=== PATIENT | female | born 1940 | race Native Hawaiian/Other Pacific Islander ===

== ENCOUNTER 2023-08-25 15:22 | Emergency (ER) | payer MEDICARE, OTHER ==
[~2023-08-25] VITALS: Ht 154.9 cm; Wt 72.7 kg
[2023-08-25] MEDS ORDERED: MIRT-89 PO (15:32)
[2023-08-25] MEDS ORDERED: METF-1211 PO (15:32)
[2023-08-25] MEDS ORDERED: ATOR10TA PO (15:32)
[2023-08-25] MEDS ORDERED: AMLO2.5T29 PO (15:32)
[2023-08-25 15:47] VITALS: TEMP 98.8
[2023-08-25 17:28] LABS: APPEARANCE,URINE CLEAR (CLEAR); BILIRUBIN,URINE NEGATIVE (NEGATIVE); COLOR,URINE LIGHT YELLOW (YELLOW); GLUCOSE, URINE (UA) NEGATIVE (NEGATIVE); KETONES,URINE NEGATIVE (NEGATIVE); LEUKOCYTE ESTERASE ,URINE MODERATE (NEGATIVE); NITRATE,URINE NEGATIVE (NEGATIVE); OCCULT BLOOD,URINE TRACE (NEGATIVE); PROTEIN,URINE 100-200,SEE CONFIRM mg/dL (NEGATIVE); SPECIFIC GRAVITIY, URINE 1.013 (1.003-1.030); UROBILINOGEN,URINE <=1.0 mg/dL (<=1.0)
[2023-08-25 17:38] LABS: BACTERIA,URINE Few /HPF (None Seen); SQUAMOUS EPITHELIAL CELL,UR Few /LPF (None Seen)
[2023-08-25 17:41] LABS: SULFOSALICYLIC ACID,URINE 2+ (Negative)
[2023-08-25] MEDS ORDERED: CEPH-558 PO (17:54)
[2023-08-25] MEDS ORDERED: CEPHALEXIN MONOHYDRATE 500 MG CAPSULE PO ONE (18:00)
[2023-08-25 18:40] VITALS: BP 130/63; PULSE 64; RESP 16
== END 2023-08-25 18:41 | disposition home or self-care (01) ==
LOC: EMS 15:23
DX: N39.0 Urinary tract infection, site not specified (principal); E11.9 Type 2 diabetes mellitus without complications; I10 Essential (primary) hypertension
CPT/HCPCS: 81001; 81002; 87086; 87186; 99283

== ENCOUNTER 2024-03-15 16:26 | Emergency (ER) | payer MEDICARE, OTHER ==
[~2024-03-15] VITALS: Ht 154.9 cm; Wt 81.8 kg
[~2024-03-15 16:26] MED LIST: AMLO2.5T29 PO; ATOR10TA PO; CEPH-558 PO; METF-1211 PO; MIRT-89 PO
[2024-03-15] MEDS ORDERED: TAMS0.4C94 PO (16:39)
[2024-03-15] MEDS ORDERED: MIRT-92 PO (16:39)
[2024-03-15] MEDS ORDERED: LOSA100T59 PO (16:39)
[2024-03-15] MEDS ORDERED: AMLO10TA55 PO (16:39)
[2024-03-15] MEDS ORDERED: LOSA-382 PO (16:39)
[2024-03-15] MEDS ORDERED: ATOR10TA69 PO (16:39)
[2024-03-15] MEDS ORDERED: METO-408 PO (16:39)
[2024-03-15] MEDS ORDERED: FAMO20 PO (16:39)
[2024-03-15] MEDS ORDERED: DULO20CA71 PO (16:39)
[2024-03-15] MEDS ORDERED: SULF-261 PO (19:06)
[2024-03-15] MEDS ORDERED: CEPH-558 PO (19:06)
[2024-03-15] MEDS: CEPHALEXIN MONOHYDRATE 500 MG CAPSULE PO ONE (19:07)
[2024-03-15] MEDS: SULFAMETHOX/TRIMETH DS 800-160 MG/TABLET PO ONE (19:07)
[2024-03-15 19:30] VITALS: BP 132/75; PULSE 53; RESP 14; TEMP 97.4
[2024-03-15 19:46] LABS: GLUCOMETER DEV NAME(LOC) ER.7; GLUCOSE,POINT OF CARE 111 MG/DL (70-110)
== END 2024-03-15 19:46 | disposition home or self-care (01) ==
LOC: EMS 16:27
DX: L60.0 Ingrowing nail (principal); E11.9 Type 2 diabetes mellitus without complications; I10 Essential (primary) hypertension
CPT/HCPCS: 82962; 99283